=== PATIENT | female | born 1935 | race Caucasian/White ===

== ENCOUNTER 2021-02-13 20:54 | Emergency (ER) | payer MEDICARE, BC ==
[2021-02-13 21:03] VITALS: BP 149/82; PULSE 86
[2021-02-13] MEDS ORDERED: Heparin Sodium 5,000 Units/ML Vial IVPUSH ONE (21:51)
[2021-02-13] MEDS ORDERED: Heparin Sodium/D5W 25,000 UNITS/500 ML BAG IV SCH (22:00)
--- NOTE | 2021-02-13 22:21 | EDM.PDOC ---
ED HPI GENERAL MEDICAL PROBLEM - General Chief Complaint: Chest Pain Stated Complaint: [facility] Time Seen by Provider: 02/13/21 21:05 Source of Information: Reports: Patient, EMS, EMS Notes Reviewed, RN Notes Reviewed History Limitations: Reports: No Limitations - History of Present Illness INITIAL COMMENTS - FREE TEXT/NARRATIVE: Patient is an 85-year-old female presenting to the emergency department after having an episode of bilateral axillary pain, epigastric discomfort, and heartburn. She reports symptoms began about 1914 and resolved approximate 45 minutes thereafter, about the time the ambulance was arrived. She did feel diaphoretic and lightheaded. She reports she has a history of intermittent atrial flutter and reports that she did feel like she had episode of flutter associated with this. At time of arrival to ER, symptoms had completely resolved. EKG completed initially by EMS showed evidence of ST elevation in leads II and III, however on subsequent EKG this had resolved. Patient reports that she is scheduled to have cardiac ablation done towards the end of March in [place]. She reports that she had "a bleeding valve "on her last ec hocardiogram. At this time, she denies any chest pain or shortness of breath. She states that she now "feels great ". 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, Isotonic Fluid, IV/IO Other Treatments CARD GAME OPERATOR: 324mg aspirin, NS - Related Data Allergies Allergy/AdvReac Type Severity Reaction Status Date / Time No Known Allergies Allergy Verified 02/13/21 21:02 Home Meds: Home Meds Metoprolol Tartrate 50 mg PO BID 02/23/14 [History] Omeprazole [Prilosec] 20 mg PO BID 02/23/14 [History] Aspirin 325 mg PO DAILY 06/13/15 [History] Simvastatin 20 mg PO DAILY 02/13/21 [History] Past Medical History HEENT History: Reports: Cataract, Impaired Vision Other HEENT History: Wears reading glasses Cardiovascular History: Reports: Arrhythmia, High Cholesterol, Hypertension, Other (See Below) Other Cardiovascular History: atrial flutter Gastrointestinal History: Reports: GERD, Other (See Below) Other Gastrointestinal History: ulcer Genitourinary History: Reports: Renal Calculus 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: Psychiatric History: Reports: Anxiety Endocrine/Metabolic History: Reports: Obesity/BMI 30+, Vitamin D Deficiency Hematologic History: Reports: Other (See Below) Other Hematologic History: Vitamin D deficiency Oncologic (Cancer) History: Reports: Breast - Past Surgical History HEENT Surgical History: Reports: Cataract Surgery, Tonsillectomy GI Surgical History: Reports: Appendectomy Female Surgical History: Reports: Hysterectomy Oncologic Surgical History: Reports: Biopsy of Breast, Lumpectomy Social & Family History - Tobacco Use Tobacco Use Status *Q: Never Tobacco User Second Hand Smoke Exposure: No - Caffeine Use Caffeine Use: Reports: Coffee Other Caffeine Use: decaf only - Recreational Drug Use Recreational Drug Use: No ED ROS GENERAL - Review of Systems Review Of Systems: See Below Constitutional: Reports: No Symptoms HEENT: Reports: No Symptoms Respiratory: Reports: No Symptoms. Denies: Shortness of Breath Cardiovascular: Reports: Other (Bilateral axillary pain). Denies: Chest Pain Endocrine: Reports: No Symptoms GI/Abdominal: Reports: Abdominal Pain (Epigastric pain and "burning in throat ") : Reports: No Symptoms Musculoskeletal: Reports: No Symptoms Skin: Reports: No Symptoms Neurological: Reports: No Symptoms Psychiatric: Reports: No Symptoms Hematologic/Lymphatic: Reports: No Symptoms Immunologic: Reports: No Symptoms ED EXAM, GENERAL - Physical Exam Exam: See Below Exam Limited By: No Limitations General Appearance: Alert, WD/WN, No Apparent Distress Respiratory/Chest: No Respiratory Distress, Lungs Clear, Normal Breath Sounds, No Accessory Muscle Use, Chest Non-Tender Cardiovascular: Normal Peripheral Pulses, Regular Rate, Rhythm, No Edema, No Gallop, No JVD, No Murmur, No Rub GI/Abdominal: Normal Bowel Sounds, Soft, Non-Tender, No Organomegaly, No Distention, No Abnormal Bruit, No Mass Neurological: Alert, Oriented, CN II-XII Intact, Normal Cognition, Normal Gait, Normal Reflexes, No Motor/Sensory Deficits Psychiatric: Normal Affect, Normal Mood Skin Exam: Warm, Dry, Intact, Normal Color, No Rash Course - Vital Signs Last Recorded V/S: Last Vital Signs Temp 97.5 F 02/13/21 20:55 Pulse 86 02/13/21 20:55 Resp 16 02/13/21 20:55 BP 149/82 H 02/13/21 20:55 Pulse Ox 95 02/13/21 20:55 - Orders/Labs/Meds Labs: Laboratory Tests 02/13/21 02/13/21 02/13/21 Range/Units 21:00 21:00 21:00 WBC 5.11 (3.98-10.04) K/mm3 RBC 4.56 (3.98-5.22) M/mm3 Hgb 13.9 (11.2-15.7) gm/dl Hct 39.5 (34.1-44.9) % MCV 86.6 (79.4-94.8) fl MCH 30.5 (25.6-32.2) pg MCHC 35.2 (32.2-35.5) g/dl RDW Std Deviation 44.4 (36.4-46.3) fL Plt Count 189 (182-369) K/mm3 MPV 10.4 (9.4-12.3) fl Neutrophils % (Manual) 49 (40-60) % Band Neutrophils % 0 (0-10) % Lymphocytes % (Manual) 41 H (20-40) % Atypical Lymphs % 0 % Monocytes % (Manual) 7 (2-10) % Eosinophils % (Manual) 3 (0.7-5.8) % Basophils % (Manual) 0 L (0.1-1.2) Platelet Estimate Adequate RBC Morph Comment Normal PT 10.6 (9.7-12.0) SECONDS INR 0.99 APTT 25.3 (21.7-31.4) SECONDS Sodium 139 (136-145) mEq/L Potassium 3.5 (3.5-5.1) mEq/L Chloride 103 (98-107) mEq/L Carbon Dioxide 25 (21-32) mEq/L Anion Gap 14.5 (5-15) BUN 17 (7-18) mg/dL Creatinine 0.7 (0.55-1.02) mg/dL Est Cr Clr Drug Dosing 47.32 mL/min Estimated GFR (MDRD) > 60 (>60) mL/min BUN/Creatinine Ratio 24.3 H (14-18) Glucose 138 H (70-99) mg/dL Calcium 8.1 L D (8.5-10.1) mg/dL Total Bilirubin 0.8 (0.2-1.0) mg/dL AST TNP ALT 33 (14-59) U/L Alkaline Phosphatase 98 (46-116) U/L Troponin I 0.305 H* (0.00-0.056) ng/mL Total Protein 7.0 (6.4-8.2) g/dl Albumin 3.4 (3.4-5.0) g/dl Globulin 3.6 gm/dL Albumin/Globulin Ratio 0.9 L (1-2) Urine Color (Yellow) Urine Appearance (Clear) Urine pH (5.0-8.0) Ur Specific [place] (1.005-1.030) Urine Protein (Negative) Urine Glucose (UA) (Negative) Urine Ketones (Negative) Urine Occult Blood (Negative) Urine Nitrite (Negative) Urine Bilirubin (Negative) Urine Urobilinogen (0.2-1.0) Ur Leukocyte Esterase (Negative) Urine RBC (0-5) /hpf Urine WBC (0-5) /hpf Ur Squamous Epith Cells (0-5) /hpf Urine Bacteria (FEW) /hpf Urine Mucus (FEW) /hpf SARS-CoV-2 RNA (KEE) (NEGATIVE) 02/13/21 02/13/21 Range/Units 21:07 21:34 WBC (3.98-10.04) K/mm3 RBC (3.98-5.22) M/mm3 Hgb (11.2-15.7) gm/dl Hct (34.1-44.9) % MCV (79.4-94.8) fl MCH (25.6-32.2) pg MCHC (32.2-35.5) g/dl RDW Std Deviation (36.4-46.3) fL Plt Count (182-369) K/mm3 MPV (9.4-12.3) fl Neutrophils % (Manual) (40-60) % Band Neutrophils % (0-10) % Lymphocytes % (Manual) (20-40) % Atypical Lymphs % % Monocytes % (Manual) (2-10) % Eosinophils % (Manual) (0.7-5.8) % Basophils % (Manual) (0.1-1.2) Platelet Estimate RBC Morph Comment PT (9.7-12.0) SECONDS INR APTT (21.7-31.4) SECONDS Sodium (136-145) mEq/L Potassium (3.5-5.1) mEq/L Chloride (98-107) mEq/L Carbon Dioxide (21-32) mEq/L Anion Gap (5-15) BUN (7-18) mg/dL Creatinine (0.55-1.02) mg/dL Est Cr Clr Drug Dosing mL/min Estimated GFR (MDRD) (>60) mL/min BUN/Creatinine Ratio (14-18) Glucose (70-99) mg/dL Calcium (8.5-10.1) mg/dL Total Bilirubin (0.2-1.0) mg/dL AST ALT (14-59) U/L Alkaline Phosphatase (46-116) U/L Troponin I (0.00-0.056) ng/mL Total Protein (6.4-8.2) g/dl Albumin (3.4-5.0) g/dl Globulin gm/dL Albumin/Globulin Ratio (1-2) Urine Color Yellow (Yellow) Urine Appearance Clear (Clear) Urine pH 6.5 (5.0-8.0) Ur Specific [place] 1.015 (1.005-1.030) Urine Protein Negative (Negative) Urine Glucose (UA) Negative (Negative) Urine Ketones Negative (Negative) Urine Occult Blood Trace-lysed H (Negative) Urine Nitrite Negative (Negative) Urine Bilirubin Negative (Negative) Urine Urobilinogen 0.2 (0.2-1.0) Ur Leukocyte Esterase Negative (Negative) Urine RBC 0-5 (0-5) /hpf Urine WBC Not seen (0-5) /hpf Ur Squamous Epith Cells 0-5 (0-5) /hpf Urine Bacteria Rare (FEW) /hpf Urine Mucus Rare (FEW) /hpf SARS-CoV-2 RNA (KEE) Negative (NEGATIVE) Meds: Medications Discontinued Medications Generic Name Dose Route Start Last Admin Trade Name Freq PRN Reason Stop Dose Admin Heparin Sodium (Porcine) 4,000 units 02/13/21 21:51 02/13/21 22:24 Heparin Sodium 5,000 Units/Ml Vial IVPUSH 02/13/21 21:52 4,000 units .BOLUS ONE Administration Heparin Sodium/Dextrose 25,000 units in 500 mls @ 20 mls/hr 02/13/21 22:00 02/13/21 22:28 Heparin 25,000 Units In D5w 500 Ml IV 1,000 units/hr TITRATE ESTRELLA 20 mls/hr Administration Protocol 1,000 UNITS/HR - Re-Assessments/Exams Free Text/Narrative Re-Assessment/Exam: Patient is an 85-year-old female presenting to the emergency department for evaluation after having an episode of bilateral axillary pain, epigastric discom fort, and heartburn. She also reports that she feels like she had an episode of atrial flutter. Symptoms had resolved by the time EMS arrived. EMS takes about proximally 1 hour to get from [place] to [place]. Patient is feeling well at this time. Patient is sinus rhythm on the panel monitor. EKG shows left bundle branch block which is chronic for her. There is no definitive evidence of ischemia on EKG. I have ordered blood work, EKG, and chest x-ray. 02/13/21 22:22 Hematology significant for troponin elevated at 0.305. I had ordered heparin drip and bolus to be given. Patient had initially requested to go to [facility], however flight crew is not available and this would delay transfer significantly. It was also bypassed the nearest tertiary care center which would not be in her best interest. Case was discussed with hospitalist at [facility], Dr. Gonzalez. She is excepted the patient for transfer. They did consult with atomic physics professor, Dr. Hdez who recommended heparin drip but no additional interventions. Patient initially declined heparin drip because of her "bleeding bowel ", however Dr. Gonzalez reviewed her echocardiogram and patient indeed has valve regurgitation which is likely what the patient is referring to. She has agreed to heparin drip. Patient will be transported by ground ambulance. Departure - Departure Time of Disposition: 22:22 Disposition: DC/Tfer to Acute Hospital 02 Reason for Transfer *Q: Other Condition: Good Clinical Impression: Non-STEMI (non-ST elevated myocardial infarction) Referrals: PCP,None [Primary Care Provider] - Forms: ED Department Discharge Sepsis Event Note (ED) - Evaluation Sepsis Screening Result: No Definite Risk
--- NOTE | 2021-02-14 09:13 | CR ---
Chest: Portable view of the chest was obtained. Comparison: Prior chest x-ray of 12/06/14. Heart is enlarged. Pulmonary vessels are congested. Mild interstitial edema is seen within both lung bases. Surgical clips are seen within the right axillary region. No acute osseous abnormality is appreciated. Impression: 1. Findings compatible with CHF with mild interstitial edema. Diagnostic code #3
== END 2021-02-13 22:47 ==
LOC: JD.ED 20:54
DX: I21.4 Non-ST elevation (NSTEMI) myocardial infarction (principal); E78.00 Pure hypercholesterolemia, unspecified; I10 Essential (primary) hypertension; K21.9 Gastro-esophageal reflux disease without esophagitis; E66.9 Obesity, unspecified; Z68.31 Body mass index [BMI] 31.0-31.9, adult; Z79.899 Other long term (current) drug therapy; Z79.82 Long term (current) use of aspirin; Z20.822 Contact with and (suspected) exposure to COVID-19
CPT/HCPCS: 36415; 71045; 80053; 81001; 84484; 85007; 85027; 85610; 85730; 93005; 96374; 99285; J1644; U0002

== ENCOUNTER 2021-06-01 22:12 | Emergency (ER) | payer MEDICARE ==
[2021-06-01 22:26] VITALS: BP 137/77; PULSE 72
--- NOTE | 2021-06-01 23:03 | EDM.PDOC ---
ED HPI GENERAL MEDICAL PROBLEM - General Chief Complaint: Cardiovascular Problem Stated Complaint: [facility] Time Seen by Provider: 06/01/21 22:33 Source of Information: Reports: Patient History Limitations: Reports: Other (Difficult to obtain a timeline of events, as the patient does not answer questions posed to her, preferring to present her symptoms and actions in a seemingly random order) - History of Present Illness INITIAL COMMENTS - FREE TEXT/NARRATIVE: Mrs. Fontana is a pleasant 85-year-old woman who now presents the ED by EMS stating that she experienced an episode of atrial flutter that began around 16:30 to 17:00 tonight, while she was sitting in a chair, resolving around 18:00. She states that she took a dose of sotalol around 1900, along with metoprolol and alprazolam. She subsequently experienced brief lightheadedness and near syncope. The patient states that she was started on sotalol about 3 or 4 months ago, but it made her feel dizzy, hot, with head pressure and vision changes, therefore her sotalol was discontinued, but her metoprolol dosage increased. The metoprolol dosage was subsequently decreased. Even though the sotalol was discontinued, she elected to take a dose tonight, because she knows that it is used to treat atrial flutter. The patient is on Eliquis. At this time, the patient states that she is feeling back to normal, although she is frustrated, because, according to the patient, every provider she sees changes her medications, and none of them talk to each other. She states that her experience has been a "nightmare". She states that she sees "too many doctors", and that she is on "too many doggone medications". Here in the ED tonight, the patient is found to be hemodynamically stable, afebrile, saturating 100% on room air. She appears to be comfortable, in no acute distress. Prior to tonight, the patient denies having a recent fever, chills, sore throat, ear pain, nasal or sinus congestion, cough, dyspnea, chest pain, palpitations, nausea, vomiting, constipation, diarrhea, abdominal pain, urinary symptoms, recent weight gain or weight loss, recent bloody bowel movements or black bowel movements, recent joint aches, headaches, or rashes. I reviewed the PMHx/PSHx/SocHx, which was reviewed with the patient by the RN. The patient's PCP is CHAMP Badillo. Her other PCP is Dr. Giselle Gary. She has an appointment to see Dr. Gary this coming Tuesday at 8 AM. 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 - Related Data Allergies Allergy/AdvReac Type Severity Reaction Status Date / Time No Known Allergies Allergy Verified 06/01/21 22:26 Home Meds: Home Meds Metoprolol Tartrate 50 mg PO BID 02/23/14 [History] Omeprazole [Prilosec] 20 mg PO BID 02/23/14 [History] Aspirin 325 mg PO DAILY 06/13/15 [History] Simvastatin 20 mg PO DAILY 02/13/21 [History] Apixaban [Eliquis] 5 mg PO BID 06/01/21 [History] Past Medical History HEENT History: Reports: Impaired Vision (wears reading glasses) Cardiovascular History: Reports: Arrhythmia (paroxysmal atrial flutter), High Cholesterol, Hypertension Gastrointestinal History: Reports: GERD Genitourinary History: Reports: Renal Calculus Psychiatric History: Reports: Anxiety Endocrine/Metabolic History: Reports: Obesity/BMI 30+, Vitamin D Deficiency Oncologic (Cancer) History: Reports: Breast (s/p lumpectomy) - Past Surgical History HEENT Surgical History: Reports: Cataract Surgery, Tonsillectomy GI Surgical History: Reports: Appendectomy Female Surgical History: Reports: Hysterectomy Oncologic Surgical History: Reports: Biopsy of Breast, Lumpectomy Social & Family History - Tobacco Use Tobacco Use Status *Q: Never Tobacco User - Caffeine Use Caffeine Use: Reports: Coffee Other Caffeine Use: decaf only ED ROS GENERAL - Review of Systems Review Of Systems: Comprehensive ROS is negative, except as noted in HPI. ED EXAM, GENERAL - Physical Exam Exam: See Below Exam Limited By: No Limitations General Appearance: Alert, WD/WN, No Apparent Distress Eye Exam: Bilateral Eye: EOMI, Normal Inspection Ears: Normal External Exam, Hearing Grossly Normal Nose: Normal Inspection Throat/Mouth: Normal Inspection, Normal Lips, Normal Voice, No Airway Compromise Head: Atraumatic, Normocephalic Neck: Normal Inspection, Full Range of Motion Respiratory/Chest: No Respiratory Distress, Lungs Clear, Normal Breath Sounds, No Accessory Muscle Use Cardiovascular: Normal Peripheral Pulses, Regular Rate, Rhythm, No Edema, No Gallop, No JVD, No Murmur, No Rub Peripheral Pulses: 3+: Radial (L), Radial (R) GI/Abdominal: Normal Bowel Sounds, Soft, Non-Tender, No Organomegaly, No Distent ion, No Abnormal Bruit, No Mass Back Exam: Normal Inspection, Full Range of Motion, NT Extremities: Normal Inspection, Normal Range of Motion, No Pedal Edema, Normal Capillary Refill Neurological: Alert, Oriented, Normal Cognition, No Motor/Sensory Deficits Psychiatric: Normal Affect Skin Exam: Warm, Dry, Intact, Normal Color, No Rash #1 Interpretation EKG Date: 06/01/21 Time: 23:01 Rhythm: NSR Rate (Beats/Min): 64 P-Wave: Present QRS: LBBB Comparison: No Change (02/13/2021) Course - Vital Signs Last Recorded V/S: Last Vital Signs Temp 36.0 C L 06/01/21 22:22 Pulse 72 06/01/21 22:22 Resp 18 06/01/21 22:22 BP 137/77 06/01/21 22:22 Pulse Ox 100 06/01/21 22:22 - Orders/Labs/Meds Labs: Laboratory Tests 06/01/21 06/01/21 Range/Units 23:00 23:00 WBC 5.50 (3.98-10.04) K/mm3 RBC 4.60 (3.98-5.22) M/mm3 Hgb 13.6 (11.2-15.7) gm/dl Hct 39.8 (34.1-44.9) % MCV 86.5 (79.4-94.8) fl MCH 29.6 (25.6-32.2) pg MCHC 34.2 (32.2-35.5) g/dl RDW Std Deviation 43.9 (36.4-46.3) fL Plt Count 172 L (182-369) K/mm3 MPV 10.3 (9.4-12.3) fl Neutrophils % (Manual) 56 (40-60) % Band Neutrophils % 0 (0-10) % Lymphocytes % (Manual) 37 (20-40) % Atypical Lymphs % 2 % Monocytes % (Manual) 3 (2-10) % Eosinophils % (Manual) 2 (0.7-5.8) % Basophils % (Manual) 0 L (0.1-1.2) Platelet Estimate Adequate RBC Morph Comment Normal Sodium 142 (136-145) mEq/L Potassium 3.6 (3.5-5.1) mEq/L Chloride 105 (98-107) mEq/L Carbon Dioxide 28 (21-32) mEq/L Anion Gap 12.6 (5-15) BUN 16 (7-18) mg/dL Creatinine 0.7 (0.55-1.02) mg/dL Est Cr Clr Drug Dosing 47.32 mL/min Estimated GFR (MDRD) > 60 (>60) mL/min BUN/Creatinine Ratio 22.9 H (14-18) Glucose 111 H (70-99) mg/dL Calcium 8.9 (8.5-10.1) mg/dL Magnesium 1.9 (1.8-2.4) mg/dL Total Bilirubin 0.6 (0.2-1.0) mg/dL AST 26 (15-37) U/L ALT 37 (14-59) U/L Alkaline Phosphatase 79 (46-116) U/L Troponin I < 0.017 (0.00-0.056) ng/mL Total Protein 6.5 (6.4-8.2) g/dl Albumin 3.4 (3.4-5.0) g/dl Globulin 3.1 gm/dL Albumin/Globulin Ratio 1.1 (1-2) - Re-Assessments/Exams Free Text/Narrative Re-Assessment/Exam: 06/01/21 23:01 I have ordered a work-up that includes a several blood tests and an ECG. 06/02/21 00:22 Test results discussed with the patient. As above, renetta's workup is unremarkable, with no electrolyte abnormalities or cardiac injury found. I advised her to not take sotalol on an as-needed basis. She has an appointment to see Dr. Johns this Tuesday, at 8:40 AM. Departure - Departure Time of Disposition: 00:29 Disposition: Home, Self-Care 01 Condition: Good Clinical Impression: Paroxysmal atrial flutter Instructions: Atrial Flutter Referrals: Nohemi Collier PA-C [Primary Care Provider] - Giselle Gary MD [Ordering Only Provider] - Rajendra Hanson [Ordering Only Provider] - Forms: ED Department Discharge Additional Instructions: You were seen in the emergency room after developing symptoms of atrial flutter, taking some sotalol, metoprolol, and Xanax, then becoming lightheaded. Work-up in the ER included several blood tests and an ECG, all of which were unremarkable, with no electrolyte abnormalities or heart damage found. As discussed, we do not recommend that you take sotalol on an as-needed basis. Please follow-up with your PCP, Dr. Giselle Gary, at your previously scheduled appointment this 06/03/2021, at 8:40 AM. If any other problems, please do not hesitate to return to the ER. Sepsis Event Note (ED) - Evaluation Sepsis Screening Result: No Definite Risk
== END 2021-06-02 00:46 | disposition home or self-care (01) ==
LOC: JD.ED 22:12
DX: I48.92 Unspecified atrial flutter (principal); K21.9 Gastro-esophageal reflux disease without esophagitis; E78.00 Pure hypercholesterolemia, unspecified; I10 Essential (primary) hypertension; E66.9 Obesity, unspecified; Z79.01 Long term (current) use of anticoagulants; Z79.82 Long term (current) use of aspirin; Z79.899 Other long term (current) drug therapy; Z68.29 Body mass index [BMI] 29.0-29.9, adult
CPT/HCPCS: 36415; 80053; 83735; 84484; 85007; 85027; 93005; 99284-25

== ENCOUNTER 2023-12-04 00:16 | Emergency (ER) | payer MEDICARE, BC ==
[2023-12-04 01:51] LABS: BASOPHILS PERCENT AUTO 0.6 % (0.0-1.0); EOSINOPHILS ABSOLUTE AUTO 0.1 K/mm3 (0.0-0.4); EOSINOPHILS PERCENT AUTO 1.1 % (0.0-6.0); HEMATOCRIT 35.8 % (37.0-47.0); IMMATURE GRAN ABSOLUTE AUTO 0.01 K/mm3 (0.00-0.05); IMMATURE GRAN PERCENT AUTO 0.2 % (0.0-0.4); LYMPHOCYTES ABSOLUTE AUTO 1.7 K/mm3 (1.0-4.8); MEAN CORPUSCULAR HEMOGLOBIN 31.1 pg (28.0-32.0); MEAN CORPUSCULAR HGB CONC 33.5 g/dl (32.0-36.0); MEAN CORPUSCULAR VOLUME 92.7 fl (83.0-99.0); MONOCYTES ABSOLUTE AUTO 0.4 K/mm3 (0.0-0.8); MONOCYTES PERCENT AUTO 8.1 % (0.0-8.0); NEUTROPHILS ABSOLUTE AUTO 3.1 K/mm3 (1.8-7.7); PLATELET COUNT,PLT 187 K/mm3 (150-400); RED BLOOD CELL COUNT 3.86 M/mm3 (4.10-5.30); WHITE BLOOD CELL COUNT,WBC 5.28 K/mm3 (3.9-11.3)
[2023-12-04 02:12] LABS: A/G RATIO 1.1 (1-2); ALBUMIN 3.6 g/dl (3.4-5.0); ANION GAP 10.3 (5-15); BILIRUBIN TOTAL 0.7 mg/dL (0.2-1.0); BUN/CREATININE RATIO 21.8 (14-18); CREATININE 1.1 mg/dL (0.55-1.02); EST CRCL DRUG DOSING (CG) 34.37 mL/min; POTASSIUM,K 4.3 mEq/L (3.5-5.1); PROTEIN TOTAL,TP 6.9 g/dl (6.4-8.2)
[2023-12-04] MEDS: Sodium Chloride 0.9% 1,000 ML IV ONE (02:17)
[2023-12-04 04:09] VITALS: BP 129/74; PULSE 68
== END 2023-12-04 04:08 | disposition home or self-care (01) ==
LOC: JD.ED 00:16
DX: M79.601 Pain in right arm (principal); E78.00 Pure hypercholesterolemia, unspecified; I10 Essential (primary) hypertension; K21.9 Gastro-esophageal reflux disease without esophagitis; E66.9 Obesity, unspecified; Z79.01 Long term (current) use of anticoagulants; Z79.82 Long term (current) use of aspirin; Z79.899 Other long term (current) drug therapy
CPT/HCPCS: 36415; 80053; 85025; 96360; 99283; J7030; 99282